=== PATIENT | male | born 1965 | race Caucasian/White ===

== ENCOUNTER 2025-01-10 07:41 | Day surgery (SDC) | payer OTHER, SELFPAY ==
[2025-01-10 08:12] VITALS: BP 129/85; PULSE 74; RESP 16; TEMP 36.9; O2SAT 98
[2025-01-10] MEDS: Lactated Ringers 1,000 ML 80 ML IV (08:30)
--- NOTE | 2025-01-10 09:05 | ANES.PREOP_ITS ---
General Info Date of Service Date Performed: 01/10/25 Height: 6 ft Weight: 103.7 kg Body Mass Index (BMI): 31.0 Surgical Procedure: Operation Date: 01/10/25 09:35 Proposed Procedure Side Surgeon p Colonoscopy Chelita Mahoney MD Meds Allergies and Home Medications Allergies Allergy/AdvReac Type Severity Reaction Status Date / Time No Known Allergies Allergy Verified 01/10/25 08:11 Home Medication ?Medication ?Instructions ?Recorded chlorhexidine gluconate 4 % 1 applic topical ONCE 11/04/24 topical liquid diclofenac sodium 1 % topical gel 4 g topical QID 11/04/24 (Arthritis Pain (diclofenac)) bisacodyl 5 mg tablet,delayed 5 mg PO ONCE colonscopy bowel prep 12/30/24 release (Dulcolax (bisacodyl)) #4 tabs polyethylene glycol 3350 17 238 g PO ONCE colonoscopy prep 12/30/24 gram/dose oral powder #238 grams Current Visit Medications: Current Medications Generic Name Dose Route Start Last Admin Trade Name Freq PRN Reason Stop Dose Admin Ringer's Solution 1,000 mls @ 80 mls/hr 01/10/25 06:00 01/10/25 08:30 IV 01/10/25 23:59 80 mls/hr INFUSION DARCY Administration IV Miscellaneous Supplies 1 each 01/10/25 06:00 Iv Access IV 01/10/25 23:59 DIRECTED DARCY Sodium Chloride 0 ml 01/10/25 06:00 Normal Saline Flush 10 Ml Syr IV 01/10/25 23:59 PRN PRN Sodium Chloride 0 ml 01/10/25 06:00 Normal Saline 10 Ml Vial IJ 01/10/25 23:59 DIRECTED PRN Sterile Water 0 ml 01/10/25 06:00 Water,Injection,Sterile 10 Ml Vial IJ 01/10/25 23:59 DIRECTED PRN [facility] Medical History Medical History Basal cell carcinoma (BCC) of neck Left base of neck, left cheek, and central upper back. Hepatic steatosis per low dose CT scan 03/11/24 Coronary artery disease per low dose CT scan 03/11/24 Osteoarthritis Pulmonary nodules per low dose ct scan ( Chronic shoulder pain Tobacco use disorder Insomnia Tinnitus Seborrheic dermatitis Knee pain, bilateral Lower back pain Depression PTSD (post-traumatic stress disorder) Pt. states no potential triggers at this time Diverticulitis Hyperlipidemia Surgical History Surgical History S/P Mohs surgery for basal cell carcinoma S/P cryotherapy of skin lesion Tobacco Smoking/Tobacco Use Status: Current every day Tobacco Type: cigarettes Smoking packs per day: 0.5 Smoking cigarettes per day: 10.0 Alcohol Alcohol Intake: current Alcohol intake frequency: 0-2 drinks per day Substance Use Substance use: Daily Substance use type: marijuana Vital Signs and Lab Results Vital Signs Most Recent Vital Signs in EMR: Most Recent Vital Signs Temp Pulse Resp BP Pulse Ox 36.9 C 74 16 129/85 98 01/10/25 08:12 01/10/25 08:12 01/10/25 08:12 01/10/25 08:12 01/10/25 08:12 Lab Results Blood Type / Crossmatch: No Data to Display Complete Blood Count: No Data to Display Complete Metabolic Panel: No Data to Display Liver Function Panel: No Data to Display Coagulation Panel: No Data to Display Cardiac Panel: No Data to Display Arterial Blood Gas: No Data to Display Venous Blood Gas: No Data to Display Pancreas Panel: No Data to Display Thyroid Panel: No Data to Display Infectious Disease: No Data to Display Blood Cultures: No Data to Display Toxicology Panel: No Data to Display Anesthesia Assessment and Plan Anesthesia History Personal History: No History of Anesthesia Complications Family History: No Family History of Anesthesia Complications Exercise Tolerance Exercise Tolerance: Metabolic Equivalents>4 Pertinent Negatives Pertinent Negatives: No Symptoms of GERD Cardiac & Pulmonary Exam Cardiac Exam: Normal S1/S2 Heart Sounds Pulmonary Exam: Clear Bilateral Breath Sounds Implantable Cardiac Device Does patient have a Pacemaker or an ICD?: No Airway Exam Known Difficult Airway: No Mallampati Class: 2 Mouth Opening: Normal (> 3cm) Thyromental Distance: Greater than 3 cm Neck Range of Motion: Full ROM Neck Circumference: Normal Teeth Condition: Normal Dentition ASA Classification ASA Score: ASA 2 Emergency Case?: No NPO Status NPO Status: NPO Clears >2 hours, Solids >8 hours Anesthesia Plan Resuscitation Status: Full Code Anesthesia Technique: General Anesthesia Airway Planned: Natural Airway Monitors Used: Standard Monitors
[2025-01-10 09:06] VITALS: BMI 31.0
--- NOTE | 2025-01-10 09:57 | W.COLOREPORT ---
Date of service: 01/10/25 Time of Service: 09:58 Colonoscopy Report Pre-op diagnosis general: Positive Cologuard test Procedure: Colonoscopy with polypectomies Findings: Sigmoid diverticulosis was present with associated muscular hypertrophy, spasm, petechiae. The prep was excellent. Polyps are as follows: Two 5 mm sessile polyps of the rectum were removed using a cold snare, retrieved completely and sent for pathology. A 5 mm sessile polyp of the cecum was removed piecemeal with multiple bites of a plain biopsy forceps, retrieved completely and sent for pathology. A 1 cm pedunculated polyp of the distal sigmoid colon was removed with a cautery snare, retrieved completely and sent for pathology. Procedure Description: After the risks, benefits, and alternatives of the procedure were thoroughly explained, informed consent was obtained. The Patient is brought to the procedure room and time out is performed confirming patient identity, nature of procedure. Patient is connected to monitoring devices including O2 sat, EKG and given supplemental oxygen per anesthesia. After appropriate anesthetic is obtained, patient is placed in the left lateral decubitus position and digital rectal exam performed with the findings noted . The colonoscope is inserted through the anus and guided under direct vision to the proximal colon as confirmed by presence of the appendiceal orifice and the ileocecal valve. The colonoscope is then slowly withdrawn , inspecting all aspects of the mucosa completely. Findings and any associated intervention, are noted above. The colonoscope was then completely withdrawn from the patient and the procedure terminated. The patient tolerated the procedure well and is transferred back to the Day surgery unit in stable condition.
[2025-01-10 09:59] VITALS: BP 130/81; PULSE 68; RESP 18; TEMP 36; O2SAT 96
--- NOTE | 2025-01-10 10:09 | W.ANESPOSTOP ---
Postoperative Evaluation Date, Time and Location Date Performed: 01/10/25 Time Performed: 10:09 Patient Location: Day Surgery Unit Vital Signs Most Recent Imported Vital Signs: Most Recent Vital Signs Temp Pulse Resp BP Pulse Ox 36.0 C L 68 18 130/81 96 01/10/25 09:59 01/10/25 09:59 01/10/25 09:59 01/10/25 09:59 01/10/25 09:59 Pain Score Most Recent Pain Score: Most Recent Pain Score Pain Level 0 01/10/25 08:12 Assessment Mental Status: Awake (Alert & Oriented to Patient Baseline) Airway and Respiratory Function: Patent airway with normal (patient baseline) respiratory exam Cardiovascular Function: Hemodynamically Stable Hydration Status: Adequately Hydrated Nausea & Vomiting: No Nausea or Vomiting Pain: Pt. Denies Any Pain Peripheral Nerve Block: Patient did not receive a nerve block
[2025-01-10 10:19] VITALS: BP 139/78; PULSE 52; RESP 18; TEMP 36.2; O2SAT 97
== END 2025-01-10 10:44 | disposition home or self-care (01) ==
PROVIDERS: Visit Provider Surgery
PROC: 0DJD8ZZ Inspection of Lower Intestinal Tract, Via Natural or Artificial Opening Endoscopic (ICD-10-PCS; CPT 45378; principal; 2025-01-10 09:30)
DX: Z12.11 Encounter for screening for malignant neoplasm of colon (principal); R19.5 Other fecal abnormalities; K57.30 Diverticulosis of large intestine without perforation or abscess without bleeding; D12.0 Benign neoplasm of cecum
CPT/HCPCS: 45385; 45380; 88305; J2003; J2704